=== PATIENT | female | born 1975 | race American Indian/Alaskan Native ===

== ENCOUNTER 2021-07-30 06:29 | Day surgery (SDC) | payer BC ==
--- NOTE | 2021-07-29 12:08 | History and Physical Report ---
History of Present Illness Date of examination: 07/25/21 Date of admission: 07/30/21 Chief complaint: heavy vaginal bleeding History of present illness: Visit Type: Pre-Op CC: Preop. History of Present Illness: pt presents for Pre op visit: H'scope, D&C, Myosure .....................................................................Mckenzie Carvalho July 25, 2021 2:42 PM Mask, Patient denies fever, cough, shortness of breath and exposure to COVID-19. Pt presents for pre op for above stated procedure. All risk/benefits/alternatives were d/w pt and questions were addressed and answered. Spoke with pt. Review of chart shows that pt was to have novasure and myosure. Confirmed with pt that she desires to have the treatment of the lining of the uterus as well as evaluation of the uterine contents if present ie fibroid vs polyp. She was advised of all risk, benefita and alternatives. She was advsied that we will call the OR and make them aware of both procedures she is to have tomorrow as well as update her insurance company. All questions were addressed and answered. 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 of genital herpes: no Partner hx. of genital herpes: no Hx of STD: None Active Medications (reviewed today): LYSTEDA 650 MG ORAL TABLET (TRANEXAMIC ACID) 1300 mg 3 times daily (3900 mg/day) for up to 5 days during monthly menstruation VITAMINS () Current Allergies (reviewed today): * LATEX (Critical) Past Medical History: Reviewed history from 01/11/2012 and no changes required: negative Past Surgical History: Reviewed history from 01/11/2012 and no changes required: positive; cerclage Family History Summary: Reviewed history Last on 05/31/2017 and no changes required:07/29/2021 General Comments - FH: Family History of Diabetes Social History: Reviewed history from 01/11/2012 and no changes required: Patient is single occ ETOH no tobacco no drugs 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 Risk Factors: Smoked Tobacco Use: Never smoker Smokeless Tobacco Use: Never Passive Smoke Exposure: no HIV High Risk Behavior: no Exercise: no Seatbelt Use: 100 % [ROS-CCC] [Labs In-House] Physical Exam Appearance: well developed, well nourished, no acute distress Other Exams Abdomen: soft, non-tender, no masses, bowel sounds normal Extremities: normal alignment, no joint enlargement, crepitus, masses or tenderness; normal tone and strength Genitourinary Exam Comments: deferred until EUA Past History Past Medical History: no pertinent history Past Surgical History: other (cerclage placement) 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 History: denies: abnormal PAP smear Family/Genetic History: other (see hpi) Social history: no significant social history, single Medications and Allergies Allergies Allergy/AdvReac Type Severity Reaction Status Date / Time latex Allergy Hives Verified 07/22/21 16:50 Home Medications Medication Instructions Recorded Confirmed Last Taken Type Multivitamin [Multiple Vitamins] 1 tab PO DAILY 07/22/21 07/22/21 Unknown History Review of Systems All systems: negative - Physical Exam Cardiovascular: Normal S1, Normal S2 Lungs: Positive: Clear to auscultation, Normal air movement Abdomen: Positive: normal appearance, soft. Negative: distention, tenderness, guarding Genitourinary (Female): Positive: other (deferred until EUA) Deep Tendon Reflex Grade: Normal +2 Results All other labs normal. Assessment and Plan - Patient Problems (1) Uterine mass Status: Acute Plan to address problem: -admit for hysterscopy with D&C and myosure (2) Menometrorrhagia Status: Acute Plan to address problem: admit for above procedures and novasure ablation.
[2021-07-29 14:20] LABS: Hematocrit 27.3 % (30.3-42.9); Hemoglobin 8.8 gm/dl (10.1-14.3); Mean Corpuscular HGB Conc 32 % (30-34); Mean Corpuscular Volume 81 fl (79-97); Platelet Count 390 K/mm3 (140-440); Red Blood Count 3.37 M/mm3 (3.65-5.03); Red Cell Distribution Width 16.1 % (13.2-15.2)
[~2021-07-30 06:29] MED LIST: ceFAZolin/Water 2 GM/20 ML 2 GM/20 ML SYRINGE IV NR
[2021-07-30] MEDS ORDERED: LACTATED RINGERS 1,000 ML IV SCH (07:30)
[2021-07-30] MEDS ORDERED: ONDANSETRON 4 MG/2 ML INJ IV PRN (07:30)
[2021-07-30] MEDS ORDERED: HYDROmorphone 1 MG/1 ML INJ IV PRN ×2 (07:30)
--- NOTE | 2021-07-30 07:30 | Anesthesia Day of Surgery ---
Anesthesia Day of Surgery - Day of Surgery Patient Examined: Yes Patient H&P Reviewed: Yes Patient is NPO: Yes
--- NOTE | 2021-07-30 07:30 | Anesthesia Consultation ---
Anesthesia Consult and Med Hx Date of service: 07/30/21 - Airway Anesthetic Teeth Evaluation: Good ROM Head & Neck: Adequate Mental/Hyoid Distance: Adequate Mallampati Class: Class II Intubation Access Assessment: Good - Pre-Operative Health Status ASA Pre-Surgery Classification: ASA2 Proposed Anesthetic Plan: General - Central Nervous System Hx Back Pain: Yes Hx Psychiatric Problems: No - Hematic Hx Anemia: Yes (8.8/27.3) Hx Sickle Cell Disease: No - Other Systems Hx Cancer: No Hx Obesity: No
[2021-07-30] MEDS ORDERED: BACTERIOSTATIC SODIUM CHLORIDE 0.9% 30 ML VIAL INFILTRATI ONE (07:45)
[2021-07-30] MEDS ORDERED: MIDAZOLAM 2 MG/2 ML INJ IV NR (08:00)
[2021-07-30] MEDS ORDERED: propofoL 200 MG/20 ML VIAL IV ONE (08:52)
[2021-07-30] MEDS ORDERED: HYDROmorphone 1 MG/1 ML INJ ONE (08:52)
[2021-07-30] MEDS ORDERED: LIDOCAINE MPF (2%) 20 MG/1 ML VIAL 5 ML ONE (08:57)
[2021-07-30] MEDS ORDERED: SODIUM CHLORIDE 0.9% IRRIG SOLN 2000 ML IR ONE (09:00)
[2021-07-30] MEDS ORDERED: ONDANSETRON 4 MG/2 ML INJ ONE (09:04)
[2021-07-30] MEDS ORDERED: dexAMETHasone 20 MG/5 ML VIAL ONE (09:04)
[2021-07-30] MEDS ORDERED: KETOROLAC 30 MG/1 ML INJ ONE (09:44)
--- NOTE | 2021-07-30 09:49 | Operative Report ---
Operative Report Operative Report: Date of procedure: 07/30/2021 Pre-operative diagnosis: Menometrorrhagia Asymptomatic anemia Post-operative diagnosis: Same Procedure name(s): 1. Hysteroscopy 2. MyoSure 3. NovaSure ablation Surgeon: Delmi Alvarez M.D. Concrete Mason: CARITO Anesthesia: General endotracheal anesthesia EBL: Minimal Urine output: Approximately 300 cc out via straight catheterization prior to the onset of the procedure Fluids: 1 L Fluid deficit: 200 mL Findings: Very dense intrauterine content. No distinct intrauterine mass was noted. Ostia noted bilaterally and noted to be normal. Normal cervical os. Indications: Patient with long history of menometrorrhagia and anemia that was not responsive to medical therapy. Patient desired surgical intervention. All risk benefits and alternatives were discussed with the patient consents were signed and placed on the chart. Procedure: Patient was taken to the operating room where she was placed under general endotracheal anesthesia she was then prepped and draped in normal sterile fashion in dorsal lithotomy position with legs in Jhonny stirrups. Straight catheterization of the bladder was performed at this time. Sterile speculum was placed inside of the vagina to visualize the entire cervix. The anterior lip of the cervix was grasped with a single-tooth tenaculum and the uterus was sounded to 9 cm. The cervix was then dilated in order to allow passage of the myosure hysteroscope. Hysteroscopy yielded the above-stated findings. Curettage under direct visualization with the MyoSure device was done at this time. Both ostia were noted. At the end of the procedure, cavity appears clear and all masses had been removed. The novasure procedure was then performed. The uterus sounded to 8 cm. The cervical length was noted to be 4 cm. The uterine cavity length was calculated to be 4 cm. The cervix was then dilated more to allow passage of the NovaSure device. With placement of the NovaSure device the cavity width was noted to be 4.4 cm. The integrity of the seal was then tested. The device did pass the testing. The power that was used for the NovaSure ablation was 2minutes. The amount of time of the ablation was 116 seconds. Hysteroscopy following the ablation noted that there was adequate cauterization of the uterine cavity. All instruments were removed from the vagina and the cervix. Patient tolerated the procedure well. All counts were correct.
--- NOTE | 2021-07-30 09:50 | Short Stay Summary ---
Short Stay Documentation Date of service: 07/30/21 - History H&P: dictated Social history: no significant social history, single - Allergies and Medications Current Medications: Allergies latex Allergy (Verified 07/22/21 16:50) Hives Home Medications Medication Instructions Recorded Confirmed Last Taken Type Multivitamin [Multiple Vitamins] 1 tab PO DAILY 07/22/21 07/30/21 07/29/21 09:00 History Ibuprofen [Motrin 800 MG tab] 800 mg PO Q8HR PRN #30 tablet 07/30/21 Unknown Rx oxyCODONE /ACETAMINOPHEN [Percocet 1 tab PO Q4HR #10 tab 07/30/21 Unknown Rx 5/325] Active Medications Hydromorphone HCl (Hydromorphone 1 Mg/1 Ml Inj) 0.25 mg IV Q10MIN PRN PRN Reason: Pain, Moderate (4-6) Stop: 07/30/21 23:00 Hydromorphone HCl (Hydromorphone 1 Mg/1 Ml Inj) 0.5 mg IV Q10MIN PRN PRN Reason: Pain , Severe (7-10) Stop: 07/30/21 23:00 Cefazolin Sodium (Ancef/Sterile Water 2 Gm/20 Ml) 2 gm in 20 mls @ 80 mls/hr IV PREOP NR; Protocol Stop: 07/30/21 23:59 Lactated Ringer's (Lactated Ringers) 1,000 mls @ 125 mls/hr IV DIRECT OLI Midazolam HCl (Midazolam 2 Mg/2 Ml Inj) 2 mg IV PREOP NR Stop: 07/30/21 23:59 Ondansetron HCl (Ondansetron 4 Mg/2 Ml Inj) 4 mg IV ONCE PRN PRN Reason: Nausea And Vomiting Stop: 07/30/21 16:00 - Brief post op/procedure progress note Date of procedure: 07/30/21 Pre-op diagnosis: Menorrhagia. Anemia. Endometrial mass. Post-op diagnosis: same Procedure: See operative report Anesthesia: GETA Findings: See operative report Surgeon: GIN VEGA Estimated blood loss: minimal Pathology: none Specimen disposition: to lab (Uterine contents) Condition: stable - Hospital course Hospital course: Patient was admitted for above-stated procedure. Patient was discharged home once she met discharge criteria in the PACU. - Disposition Condition at discharge: Good Disposition: 01 HOME / SELF CARE / HOMELESS - Discharge Diagnoses (1) Uterine mass Status: Acute (2) Menometrorrhagia Status: Acute Short Stay Discharge Plan Additional Instructions: DO NOT TAKE TUB BATHS, SWIM OR SOAK IN WATER FOR 2 WEEKS. MAY SHOWER. DO NOT DRIVE WHILE TAKING PRESCRIPTION PAIN MEDICATION (PERCOCET) DO NOT DRIVE, OPERATE MACHINERY OR SIGN LEGAL PAPERS FOR 24 HOURS. YOU MAY RESUME YOUR REGULAR DIET (AVOID GREASY OR SPICY FOODS TODAY) KEEP FOLLOW UP APPOINTMENT WITH DR. VEGA. Follow up with: BERNIE MARMOLEJO DO [Primary Care Provider] - 7 Days Forms: Outpatient Surgery DC Inst. Prescriptions: Ibuprofen [Motrin 800 MG tab] 800 mg PO Q8HR PRN #30 tablet PRN Reason: Pain, Moderate (4-6) oxyCODONE /ACETAMINOPHEN [Percocet 5/325] 1 tab PO Q4HR #10 tab
[2021-07-30 10:33] VITALS: BP 108/71
--- NOTE | 2021-07-30 14:15 | Post Anesthesia Evaluation ---
- Post Anesthesia Evaluation Patient Participated: Yes Airway Patent: Yes Stable Respiratory Function: Yes Nausea/Vomiting: No Temp > 96.8F: Yes Pain Manageable: Yes Adequeate Hydration: Yes Anesthesia Complications: No Block Receding Appropriately: Not Applicable Patient on Ventilator: No
== END 2021-07-30 11:05 | disposition home or self-care (01) ==
LOC: OR 06:29
PROVIDERS: ATTEND Obstetrics & Gynecology
DX: N92.1 Excessive and frequent menstruation with irregular cycle (principal); N84.0 Polyp of corpus uteri; D64.9 Anemia, unspecified; Z79.899 Other long term (current) drug therapy; Z98.890 Other specified postprocedural states; Z91.040 Latex allergy status
CPT/HCPCS: 36415; 58563; 84703; 85027; 88305; A4217; C1782; J0690; J1100; J1170; J1885; J2405; J2704; J7120